=== PATIENT | female | born 1995 | race Asian ===

== ENCOUNTER → 2022-09-03 10:00 | Outpatient (CLI) | payer OTHER, SELFPAY ==
[2022-09-03 10:57] LABS: Influenza A - CEPHEID Flu A NEGATIVE (NEGATIVE); Influenza B - CEPHEID Flu B NEGATIVE (NEGATIVE); Respiratory Syncytial Virus Negative (Negative)
[2022-09-03 10:58] LABS: COVID-19 CEPHEID 4-PLEX PCR Negative (Negative)
== END ==
PROVIDERS: PCP Nurse Practitioner; Visit Provider Physician Assistant Medical
DX: R05.9 Cough, unspecified (principal)
CPT/HCPCS: 0241U

== ENCOUNTER → 2023-01-13 10:30 | Outpatient (CLI) | payer OTHER, SELFPAY ==
[2023-01-13 11:30] LABS: Add Manual Diff / Slide Review NO; Basophils Absolute Auto 100 /uL (0-100); Basophils Percent Auto 0.9 % (0-2); Eosinophils Absolute Auto 200 /uL (0-450); Eosinophils Percent Auto 2.9 % (2-4); Hematocrit 39.5 % (36-46); Hemoglobin 13.4 g/dL (12.0-16.0); Lymphocytes Absolute Auto 2700 /uL (1100-4500); Lymphocytes Percent Auto 33.6 % (25-40); Mean Corpuscular HGB Conc 33.8 % (30-36); Mean Corpuscular Hemoglobin 29.5 PG (26-34); Mean Corpuscular Volume 87.2 fL (80-100); Monocytes Absolute Auto 600 /uL (0-900); Monocytes Percent Auto 7.3 % (3-14); Neutrophils Absolute Auto 4500 /uL (1500-7000); Neutrophils Percent Auto 55.3 % (50-75); Platelet Count 272 X10^3/uL (150-400); Red Blood Cell Count 4.53 X10^6/uL (4.0-5.2); White Blood Cell Count 8.1 X10^3/uL (4.5-11.0)
[2023-01-13 12:01] LABS: Alanine Aminotransferase 143 IU/L (<35); Albumin 4.4 g/dL (3.5-5.0); Albumin Globulin Ratio 1.5 (1.0-2.8); Alkaline Phosphatase 123 U/L (38-126); Aspartate Aminotransferase 50 IU/L (14-36); BUN Creatinine Ratio 20.8 (6-22); Bilirubin Total 0.7 mg/dL (0.2-1.3); Blood Urea Nitrogen 15 mg/dL (7-17); C-Reactive Protein Quant 0.5 mg/dL (<1.0); Calcium 9.5 mg/dL (8.4-10.2); Carbon Dioxide 26 mmol/L (22-32); Chloride 104 mmol/L (98-107); Cholesterol 191 mg/dL (140-199); Estimated Glomerular Filt Rate > 60 mL/min (>60); Glucose 83 mg/dL (70-100); HDL Cholesterol 67 mg/dL (40-60); HEMOLYSIS < 15 (0-50); LDL Cholesterol Calculated 107 mg/dL (<100); Potassium 4.2 mmol/L (3.4-5.1); Sodium 139 mmol/L (137-145); Total Protein 7.4 g/dL (6.3-8.2); Triglycerides 84 mg/dL (35-150)
[2023-01-13 12:03] LABS: Rheumatoid Factor < 8.6 IU/mL (<12.0)
[2023-01-13 12:14] LABS: Erythrocyte Sedimentation Rate 6 MM/HR (0-20)
[2023-01-13 12:16] LABS: Free T3, Triiodothyronine Free 4.17 pg/mL (2.77-5.27); Free T4, Direct Thyroxine 1.04 ng/dL (0.78-2.19)
[2023-01-13 12:29] LABS: Thyroid Stimulating Hormone 1.78 uIU/mL (0.47-4.68)
[2023-01-13 17:00] LABS: Creatinine Urine Random 211.4 mg/dL
[2023-01-13 17:07] LABS: Microalbumi Creatinin Ratio Ur 5.2 ug/mg CR (<30); Microalbumin Urine Random 1.1 mg/dL (0-1.6)
[2023-01-13 18:38] LABS: HIV 1 & 2 Ab/Ag 4th Gen Combo NEGATIVE (NEGATIVE); Hep C Virus Ab w/Reflex Quant NEGATIVE s/c (NEGATIVE)
[2023-01-16 14:58] LABS: ANA Screen, IFA Negative (.)
== END ==
PROVIDERS: PCP Nurse Practitioner; Referring Provider Nurse Practitioner; Visit Provider Nurse Practitioner
DX: Z00.00 Encounter for general adult medical examination without abnormal findings (principal); Z11.59 Encounter for screening for other viral diseases; M25.50 Pain in unspecified joint; Z11.4 Encounter for screening for human immunodeficiency virus [HIV]
CPT/HCPCS: 36415; 80053; 80061; 82043; 82570; 84439; 84443; 84481; 85025; 85651; 86038; 86140; 86430; 86803; 87389

== ENCOUNTER → 2023-03-10 15:45 | Outpatient (CLI) | payer OTHER, SELFPAY ==
[2023-03-10 18:06] LABS: HCG Quantitative /Beta subunit 47127 mIU/mL
== END ==
PROVIDERS: PCP Nurse Practitioner; Referring Provider Nurse Practitioner; Visit Provider Nurse Practitioner
DX: N91.2 Amenorrhea, unspecified (principal)
CPT/HCPCS: 36415; 84702

== ENCOUNTER → 2023-04-11 15:33 | Outpatient (CLI) | payer OTHER, SELFPAY ==
[2023-04-11 19:57] LABS: Urine N gonorrhoeae NOT DETECTED
[2023-04-11 20:04] LABS: Urine Chlamydia NOT DETECTED
== END ==
PROVIDERS: Visit Provider Specialist
DX: Z34.81 Encounter for supervision of other normal pregnancy, first trimester (principal); Z3A.11 11 weeks gestation of pregnancy
CPT/HCPCS: 87491; 87591

== ENCOUNTER → 2023-04-11 15:56 | Outpatient (CLI) | payer OTHER, SELFPAY ==
[2023-04-11 16:16] LABS: Specimen Label NATERA TEST KIT
[2023-04-11 17:05] LABS: Add Manual Diff / Slide Review NO; Basophils Absolute Auto 100 /uL (0-100); Basophils Percent Auto 0.8 % (0-2); Eosinophils Absolute Auto 100 /uL (0-450); Hematocrit 40.1 % (36-46); Hemoglobin 13.7 g/dL (12.0-16.0); Lymphocytes Absolute Auto 2700 /uL (1100-4500); Lymphocytes Percent Auto 21.5 % (25-40); Mean Corpuscular HGB Conc 34.1 % (30-36); Mean Corpuscular Hemoglobin 29.4 PG (26-34); Mean Corpuscular Volume 86.2 fL (80-100); Monocytes Absolute Auto 500 /uL (0-900); Monocytes Percent Auto 4.3 % (3-14); Neutrophils Absolute Auto 9100 /uL (1500-7000); Neutrophils Percent Auto 72.4 % (50-75); Platelet Count 264 X10^3/uL (150-400); Red Blood Cell Count 4.65 X10^6/uL (4.0-5.2); Red Cell Distribution Width 12.1 % (11.6-14.8); White Blood Cell Count 12.5 X10^3/uL (4.5-11.0)
[2023-04-12 03:23] LABS: RPR Screen Non Reactive (Non Reactive)
[2023-04-12 08:39] LABS: Varicella IgG Antibody 412 index (Immune >165)
[2023-04-14 15:37] LABS: Hepatitis B Surface Antigen NEGATIVE s/c (NEGATIVE); Rubella Antibody IgG 69.7 IU/mL (>15)
[2023-04-14 15:55] LABS: HIV 1 & 2 Ab/Ag 4th Gen Combo NEGATIVE (NEGATIVE); Hep C Virus Ab w/Reflex Quant NEGATIVE s/c (NEGATIVE)
== END ==
PROVIDERS: Referring Provider Obstetrics & Gynecology; Visit Provider Obstetrics & Gynecology
DX: Z34.81 Encounter for supervision of other normal pregnancy, first trimester (principal); Z3A.11 11 weeks gestation of pregnancy
CPT/HCPCS: 36415; 80055; 86787; 86803; 86850; 86900; 86901; 87086; 87389; 87491; 87591

== ENCOUNTER → 2023-06-05 09:19 | Outpatient (CLI) | payer OTHER, SELFPAY ==
--- NOTE | 2023-06-05 14:20 | DI.US.S_ITS ---
PROCEDURE: US OB >= 14 WEEKS FETUS INDICATIONS: ANATOMY SCAN OUTSIDE/PRIOR DATING DATA: Last menstrual period (LMP): 01/23/2023. LMP-based estimated date of delivery (ELADIA): 10/30/2023. First dating scan (date and location): 04/11/2023. Estimated date of delivery (ELADIA) from first dating scan: 10/30/2023 The calculations are made using the working and ultrasound ELADIA of 10/30/2023. TECHNIQUE: Real-time scanning was performed of the fetus, with image documentation and biometric measurements. Endovaginal scanning: Not performed COMPARISON: None. FINDINGS: General: A single living intrauterine gestation is present. Presentation: Breech. Placenta: Placental position is anterior , low lying, without previa. Amniotic fluid index: 14.9 cm, normal range is 5-24 cm. Single deepest vertical pocket is 5.1 cm. heart rate: 153 beats per minute. Maternal cervical canal: 5 cm long. Normal lower limit is 2.5 cm. biometrics: Biparietal diameter: 4.3 cm, 19 weeks 0 days Head circumference: 16.1 cm, 18 weeks 6 days Abdominal circumference: 14.0 cm, 19 weeks 0 days Femur length: 2.9 cm, 18 weeks 5 days Clinically estimated gestational age: 19 weeks 0 days Composite gestational age from present scan: 18 weeks 6 days Estimated weight and percentile: 264 g, 40th percentile Anatomic survey: Neuro: Ventricles are non-dilated at less than 10 mm. Cisterna magna is normal at 3-11 mm. Cerebellum is normal in size and morphology. Nuchal skin fold: Normal at less than 6 mm between 14-21 weeks gestational age. Face: Nose and lips, facial profile are normal. Spine: No evidence for spina bifida. Heart: 4-chambered heart is present, with normal ventricular outflow tracts. Diaphragm: Diaphragm is intact. Stomach: Left-sided stomach is present. Kidneys: No hydronephrosis. Normal is less than 5 mm in 2nd trimester, less than 7 mm in 3rd trimester. Cord: 3-vessel cord has orthotopic insertion. Bladder: Normal in size. Extremities: All 4 extremities identified. IMPRESSION: 1. Living 2nd trimester intrauterine . No sonographic evidence of complications. Current ultrasound age is 1 day less than clinical age. 2. Normal anatomy scan. 3. Low-lying placenta without previa. Consider follow-up ultrasound to document resolution of low lying placenta. We strive to produce accurate, complete, and clear reports of imaging services. To assist us in improving patient care, this report was composed using standard report templates and voice recognition software. Therefore, it may contain abnormal punctuation, insertions and/or omissions. Occasional wrong-word or sound-alike substitutions may occur. Though we review the report and make efforts to correct it, we do recommend that the report be read carefully in proper context to recognize any text inaccuracies. Dictated by: Gilmer Douglas M.D. on 06/05/2023 at 17:26 Approved by: Gilmer Douglas M.D. on 06/05/2023 at 17:36
[2023-06-07 22:44] LABS: AFP Value 38.2 ng/mL (.); Insulin Dep Diabetes No (.); OSBR Risk 1IN 10000 (.); Test Results *Screen Negative* (.)
[2023-06-10 07:57] LABS: Results Report (.)
== END ==
PROVIDERS: Referring Provider Specialist; Visit Provider Specialist
DX: O44.42 Low lying placenta NOS or without hemorrhage, second trimester (principal); Z3A.18 18 weeks gestation of pregnancy
CPT/HCPCS: 36415; 76811; 82105

== ENCOUNTER → 2023-08-22 10:22 | Outpatient (CLI) | payer OTHER, SELFPAY ==
--- NOTE | 2023-08-22 11:32 | DI.US.S_ITS ---
PROCEDURE: US OB FOLLOW UP INDICATIONS: FOLLOW UP LOW LYING PLACENTA OUTSIDE/PRIOR DATING DATA: Last menstrual period (LMP): 01/23/2023. LMP-based estimated date of delivery (ELADIA): 10/30/2023. First dating scan (date and location): 04/11/2023. Estimated date of delivery (ELADIA) from first dating scan: 10/30/2023 TECHNIQUE: Real-time scanning was performed of the fetus, with image documentation. Endovaginal scanning: No COMPARISON: None. FINDINGS: A single living intrauterine gestation is present. Presentation: Vertex Placenta: Placental position is anterior, without previa. Amniotic fluid index: 12.2 cm, normal range is 5-24 cm. Single deepest vertical pocket is 4.9 cm. heart rate: 144 beats per minute. Maternal cervical canal: 5.4 cm long. Normal lower limit is 2.5 cm. Clinically estimated gestational age: 30 weeks 1 day Limited survey of anatomy includes normal stomach/abdomen, bilateral renal regions, and urinary bladder/pelvis. . IMPRESSION: 1. Single living intrauterine gestation. 2. No evidence of low lying placenta. Dictated by: Lashawn Burciaga M.D. on 08/22/2023 at 16:18 Approved by: Lashawn Burciaga M.D. on 08/22/2023 at 16:20
[2023-08-22 12:10] LABS: Hematocrit 39.2 % (36-46); Hemoglobin 13.5 g/dL (12.0-16.0)
[2023-08-22 12:33] LABS: GTT (PREG) 1 Hour PP 50gm Dose 130 mg/dL (76-139)
== END ==
PROVIDERS: Referring Provider Student in an Organized Health Care Education/Training Program; Visit Provider Student in an Organized Health Care Education/Training Program
DX: O44.43 Low lying placenta NOS or without hemorrhage, third trimester (principal); Z3A.30 30 weeks gestation of pregnancy
CPT/HCPCS: 36415; 76816; 82950; 85014; 85018

== ENCOUNTER → 2023-10-09 11:20 | Outpatient (CLI) | payer OTHER, SELFPAY ==
[2023-10-10 09:30] LABS: Strep Grp B PCR POS for Grp B Strep
== END ==
PROVIDERS: Visit Provider Student in an Organized Health Care Education/Training Program
DX: Z34.93 Encounter for supervision of normal pregnancy, unspecified, third trimester (principal); Z3A.37 37 weeks gestation of pregnancy
CPT/HCPCS: 87653

== ENCOUNTER 2023-10-28 07:13 | Inpatient (IN) | payer OTHER, SELFPAY ==
--- NOTE | 2023-10-28 08:20 | PM.OBHP.1 ---
OB HPI Date/Time Date of admission: 10/28/23 Date Patient Seen: 10/28/23 Time Patient Seen: 08:20 History of Present Condition Chief complaint: IUP, 39+5 wks, SROM, GBS positive status : 3 Para: 1 Estimated Date of Delivery: 10/30/23 Estimated Gestational Age (weeks): 39+5 Narrative: Lyubov Adams is a 28 year old , admitted now at 39+ 5 weeks gestational age with rupture membranes occurring 21 hours prior to presentation. Patient is having only irregular contractions. She has had an uneventful course with solid early dating and appropriate milestones throughout. GBS is positive. History of Present care: good care Dating criteria: LMP confirmed by 1st trimester US Ultrasounds: normal 1st trimester US and normal mid trimester US Obstetrical complications: other (GBS positive status) Preadmission Labs Blood type: B (+) positive -: Antibody screen: negative, GBS status: positive, HBsAG: negative, HIV: negative and RPR/VDLR: negative -: Chlamydia screen: not detected and Gonorrhea screen: not detected -: Rubella: immune and Varicella: immune HCT: 39.2 HCAB: negative PAP: Normal Quad screen: Normal (AFP testing negative) Cell-free DNA: Low risk male infant 1 hr GTT: 130 Prior (ies) History: x 1 Evaluation Evaluation Baseline heart rate: 150 Variability: Moderate (11-25) monitor accelerations: Present Monitor Decelerations: Absent Contraction Frequency (minutes): 6 Uterine Contraction Intensity: Mild Category of Tracing: Reactive Status: Category l Dilation (cm): 3 Effacement (%): 80 Dilation: 3-4 cm Effacement: >/=80% station: -1 Position of cervix: mid Consistency: medium Enrique score: 9 Non-invasive Membranes Rupture Test: positive PFS Medical History (Updated 10/15/23 @ 10:04 by Natalie Doss DO) Asthma Migraines Headache Chlamydia (~2014) Surgical History Anesthesia History of removal of cyst (~2011) [place] teeth removed (~2005) Family History (Updated 04/09/23 @ 14:36 by Juliana Cifuentes RN) Father Diabetes mellitus Mother Hypertension Grandfather Stroke Grandfather Diabetes mellitus Hypertension Hyperlipidemia Stroke Grandmother Diabetes mellitus Hypertension Hyperlipidemia Family/Other Diabetes mellitus Social History marital status: number of children: 1 household members: spouse lives independently: Yes caregiver/support person: Yes housing: house pets and animals: No education level: college (bachelor's degree) 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) current occupational exposures/hazards: No special antione needs: No travel history: recent () seatbelt use: always helmet use: Yes water heater temp set < 120 deg: Yes working smoke detector in home: Yes fire extinguisher in home: No carbon monox detector in home: Yes firearms in home: Yes firearms unloaded and locked: Yes do you feel safe at home: Yes Smoking Status: Never smoker second hand exposure: No alcohol intake: former (occasionally when not ) substance use type: does not use during the past year weight has: increased > 10 lbs well-balanced diet: rarely or never daily servings fruits/ve-1 caffeine: No Type(s) of exercise: weight lifting Meds Home Medications and Allergies Home Medications Medication Instructions Recorded Confirmed Type prenat.vits,kasia,smh-qhhv-ocyqq 1 tab PO DAILY 04/09/23 10/28/23 History Allergies Allergy/AdvReac Type Severity Reaction Status Date / Time No Known Drug Allergies Allergy Verified 10/15/23 09:50 Review of Systems Review of Systems Narrative: Problem-specific ROS positives included in HPI OB Exam Vital signs Blood Pressure: 132/78 Pulse Rate: 85 Temperature: 97.2 F HENMT Head: normal to inspection, normocephalic and atraumatic Eyes General: appearance normal, both eyes and all related structures Resp Effort & Inspection: normal respiratory effort and able to speak in complete sentences Auscultation: clear to auscultation bilaterally Cardio Rate: regular rate Rhythm: regular rhythm Heart Sounds: S1 normal, S2 normal and no murmurs Extremities Lower extremity: Yes normal to inspection GI Inspection: normal to inspection Palpation: Yes soft and Yes no hepatosplenomegaly Uterus Location (Fundal Height): 37 Presentation: vertex Estimated Weight (lbs): 7 Objective Labs 10/28/23 07:55 Assessment and Plan Assessment and Plan Assessment and Plan narrative: ASSESSMENT 1. Intrauterine , 39+5 wks EGA 2. SROM x 21 hrs. 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 GBS positive status PLAN 1. Admit for labor and delivery 2. See admission orders
[2023-10-28 08:44] LABS: Add Manual Diff / Slide Review NO; Basophils Absolute Auto 0 /uL (0-100); Basophils Percent Auto 0.4 % (0-2); Eosinophils Absolute Auto 100 /uL (0-450); Hematocrit 39.4 % (36-46); Hemoglobin 13.4 g/dL (12.0-16.0); Lymphocytes Absolute Auto 2500 /uL (1100-4500); Lymphocytes Percent Auto 21.6 % (25-40); Mean Corpuscular HGB Conc 33.9 % (30-36); Mean Corpuscular Volume 85.4 fL (80-100); Monocytes Absolute Auto 600 /uL (0-900); Monocytes Percent Auto 5.1 % (3-14); Neutrophils Absolute Auto 8300 /uL (1500-7000); Neutrophils Percent Auto 71.9 % (50-75); Platelet Count 213 X10^3/uL (150-400); Red Blood Cell Count 4.61 X10^6/uL (4.0-5.2); White Blood Cell Count 11.6 X10^3/uL (4.5-11.0)
[2023-10-28] MEDS: AMPICILLIN 2,000 MG in SODIUM CHLORIDE 0.9% 100 ML 200 MG IV (08:49)
[2023-10-28] MEDS: LACTATED RINGERS 1,000 ML 100 ML IV (08:49)
[2023-10-28 09:27] VITALS: BP 132/78
[2023-10-28] MEDS: OXYTOCIN PREMIX 30 UNIT/500 ML PLAST..BAG IV (10:01)
[2023-10-28] MEDS: AMPICILLIN 1,000 MG in SODIUM CHLORIDE 0.9% 100 ML 200 MG IV (12:33)
--- NOTE | 2023-10-28 13:21 | PM.OBPRVD ---
Events: Prolonged Rupture Membrane and Other (GBS positive status) Labor & Delivery Delivery date: 10/28/23 Intrapartal Events: None Cervical ripening method: none Induction method: per pitocin protocol Delivery monitor: external FHT and external uterine Route of delivery: Episiotomy description: None L&D Laceration Description: Perineal - 2nd Degree Delivery repair: chromic Estimated blood loss (mL): 200 Anesthesia Type: Local and Other (Nitrous oxide) Complications: None Narrative: Following a 2nd stage lasting less than 10 minutes, the patient delivered spontaneously over an intact perineum a viable and vigorous male . A tight nuchal cord was reduced after delivery of the and skin to skin contact initiated immediately. Delayed cord clamping performed and once the umbilical cord was doubly clamped and cut, cord blood sample was obtained for routine studies. The placenta was then delivered with gentle cord traction and suprapubic countertraction. Intravenous Pitocin was administered immediately after delivery of the placenta and the post delivery bleeding was easily brought under control. Placenta was then inspected and found to be intact with a centrally inserted three-vessel cord. Inspection of the perineum showed that there was a superficial second-degree perineal laceration in the midline which was closed with 2-0 chromic catgut suture under nitrous with local anesthetic. Sponge and needle counts were correct at the completion of the case and both mother and tolerated the delivery process well. Baby 1: Infant gender: Male Presentation: vertex Position: Left Occiput Anterior Placenta delivery description: Spontaneous Cord Vessel Description: 3 Vessels score (1 min): 9 score (5 min): 9 weight: 8 lb 0.291 oz
[2023-10-28] MEDS: DERMOPLAST SPRAY 20% 60 ML 1 SPRAY TOP (17:21)
[2023-10-28 17:31] VITALS: BP 132/78; PULSE 85; TEMP 36.2
--- NOTE | 2023-10-28 17:36 | P.DS_ITS ---
Discharge Providers Provider Date of admission: 10/28/23 07:13 Discharge Date: 10/30/23 Primary care physician: Lora ROMERO Provider Consults: 10/28/23 08:20 Consult to Anesthesiology Urgent Comment: Consulting Provider: Misael Wilkerson Reason for consultation: Epidural Has provider been notified: No 10/29/23 13:19 Consult to Professor Of Floriculture Routine Comment: Discharge provider: Misael Wilkerson MD Summary Hospital Course Date Patient Seen: 10/29/23 Time Patient Seen: 07:30 Diagnoses: Intrauterine gestation, 39+ 5 weeks gestational age, delivered by spontaneous vaginal Prolonged rupture of membranes Group B strep positive status Hospital Course: The patient was admitted on the morning of 10/28/2023 with rupture membranes apparently occurring the prior morning about 21 hours prior to admission. Intravenous ampicillin was initiated immediately upon her admission and Pitocin induction/augmentation initiated. The patient delivered spontaneously by vaginal mid day on 10/08/2023 a viable male with Apgars of 9/9 and a weight of 3637 g (8 lb 0.3 oz). Because the mother had only received a single dose of IV ampicillin prior to delivery, baby remained in the hospital for an additional day. Both mother and baby remained afebrile following delivery both are doing well. Mother has experienced prompt return of bowel and bladder function, she is ambulating independently, tolerating regular diet, and her pain is well controlled with oral pain medications. She will be discharged at this time to home in an afebrile normotensive condition after counseling regarding precautionary symptoms, limitations of activity, medications, and plans for follow-up will be in 6 weeks or as needed. Medications at discharge include resumption of vitamins along with ibuprofen 600 mg p.o. q.6 hours as needed pain. Peripartum Data Delivery Method: Natural Vaginal Laceration Description: Perineal - 2nd Degree Procedures: Spontaneous vaginal with repair of second-degree perineal laceration complications: none 1: Gender: Male Disposition of : home Status at Discharge Cognitive/behavioral status at discharge: oriented Functional status at discharge: independent ambulation Overall status at discharge: patient is progressing back to baseline Time Spent with Patient Time attestation: Total time spent providing and/or coordinating discharge services: Time spent: Less than 30 minutes Objective Labs 10/29/23 06:15 Labs: Laboratory Results - last 24 hr 10/28/23 07:55 WBC 11.6 H RBC 4.61 Hgb 13.4 Hct 39.4 MCV 85.4 MCH 29.0 MCHC 33.9 RDW 14.0 Plt Count 213 Neut % (Auto) 71.9 Lymph % (Auto) 21.6 L [place] % (Auto) 5.1 Eos % (Auto) 1.0 L Baso % (Auto) 0.4 Neut # (Auto) 8300 H Lymph # (Auto) 2500 [place] # (Auto) 600 Eos # (Auto) 100 Baso # (Auto) 0 Blood Type B Positive Antibody Screen Negative Exam Vital Signs (past 8 hours): - 10/28/23 17:31 Temperature 97.2 F L Pulse Rate 85 Blood Pressure 132/78 Const General: cooperative and comfortable Nutritional Appearance: average body habitus HENMT Head: normal to inspection, normocephalic and atraumatic Face and sinus: normal facial exam Eyes General: appearance normal, both eyes and all related structures Neck Neck: normal visual inspection Resp Effort & Inspection: normal respiratory effort and able to speak in complete sentences GI Inspection: normal to inspection Palpation: soft and no hepatosplenomegaly Uterus Location (Fundal Height): 17 Discharge Plan Discharge Plan Patient Disposition: Home Provider Discharge Comment: Please review the written instructions you received when you were discharged from the hospital. Your follow-up appointment will be scheduled for 6 weeks after delivery and we look forward to seeing you then. If however in the meanwhile you have any issues, concerns, or questions, please contact the office at [phone] or via patient portal. Discharge orders & Medications Prescriptions: New ibuprofen 600 mg Tablet 600 mg PO Q6HR PRN (Reason: Pain, Mild (1-3)) Qty: 30 2RF Continued prenat.vits,kasia,gwu-wvol-dgjwa Tablet 1 tab PO DAILY Follow up/Referrals: Provider,Lora ROMERO [Primary Care Provider] - Natalie Doss DO [Physician] - (Appointment on Thrus, December, check in time 10:00 am and appointment 10:15 am.) Misael Wilkerson MD [Physician] - Discharge Health Status Multidrug resistant organism: No MDRO Diet/Activity/Treatments Diet: Diet as Tolerated Activity: As tolerated Other treatments: Lihm-boq-[id number] Tylenol may be for additional pain relief. Qfoy-jom-jjgdeiv stool softeners and/or MiraLax as needed constipation. Skin/Wound/Dressing Care Report to your healthcare provider any signs of infection, such as:: chills, fever, increased pain, unusual drainage and unusual redness Dressing: N/A Visit Report/Discharge Packet Instructions: DI for Labor and Delivery, Vaginal , DI for and Nipple Soreness Discharge Data Primary Care Provider: Lora Wallace
[2023-10-28] MEDS: ACETAMINOPHEN 325 MG TABLET 650 MG PO (20:48)
[2023-10-28] MEDS: DOCUSATE 100 MG CAPSULE PO (20:48)
[2023-10-29] MEDS: ACETAMINOPHEN 325 MG TABLET 650 MG PO ×2 (05:49→13:21)
[2023-10-29 06:26] LABS: Add Manual Diff / Slide Review NO; Basophils Absolute Auto 100 /uL (0-100); Basophils Percent Auto 0.6 % (0-2); Eosinophils Absolute Auto 100 /uL (0-450); Eosinophils Percent Auto 0.8 % (2-4); Hematocrit 37.6 % (36-46); Lymphocytes Absolute Auto 3400 /uL (1100-4500); Lymphocytes Percent Auto 19.6 % (25-40); Mean Corpuscular HGB Conc 34.5 % (30-36); Mean Corpuscular Hemoglobin 29.2 PG (26-34); Mean Corpuscular Volume 84.8 fL (80-100); Monocytes Absolute Auto 900 /uL (0-900); Neutrophils Absolute Auto 12900 /uL (1500-7000); Platelet Count 199 X10^3/uL (150-400); Red Blood Cell Count 4.44 X10^6/uL (4.0-5.2); Red Cell Distribution Width 14.3 % (11.6-14.8); White Blood Cell Count 17.4 X10^3/uL (4.5-11.0)
[2023-10-29] MEDS: IBUPROFEN 600 MG TABLET PO ×2 (08:45→16:29)
[2023-10-29] MEDS: DOCUSATE 100 MG CAPSULE PO ×2 (08:46→21:40)
--- NOTE | 2023-10-29 14:41 | PM.OBPN.1 ---
Subjective - OB Subjective Patient comments: no complaints [place] baby status: doing well [place] feeding status: exclusively breast feeding Date Patient Seen: 10/29/23 Time Patient Seen: 08:45 Interval history: Doing well overnight following yesterday afternoon. Infant or remain in hospital until 10/30/2023 because a 2nd dose of IV antibiotics was unable to be administered prior to infant delivery. Exam Const General: cooperative and comfortable Nutritional Appearance: average body habitus Orientation: alert and oriented x3 HENMT Head: normal to inspection, normocephalic and atraumatic Ears: hearing grossly normal bilaterally Face and sinus: face symmetric Eyes General: appearance normal, both eyes and all related structures Conjunctivae: conjunctivae normal Sclera: sclerae normal EOM: EOM intact bilaterally Neck Neck: normal visual inspection Resp Effort & Inspection: normal respiratory effort and able to speak in complete sentences GI Inspection: normal to inspection Palpation: soft and no hepatosplenomegaly External Female Exam: other (Perineum intact, minimal bleeding) Psych Appearance: grossly normal Mental Status: mental status grossly normal Speech and Movement: speech and movement normal Mood: congruent mood Affect: normal affect Attitude: cooperative Thought Process: normal Thought Content: normal Judgment: judgment good Objective Labs 10/29/23 06:15 Labs: Laboratory Results - last 24 hr 10/29/23 06:15 WBC 17.4 H RBC 4.44 Hgb 13.0 Hct 37.6 MCV 84.8 MCH 29.2 MCHC 34.5 RDW 14.3 Plt Count 199 Neut % (Auto) 74.0 Lymph % (Auto) 19.6 L [place] % (Auto) 5.0 Eos % (Auto) 0.8 L Baso % (Auto) 0.6 Neut # (Auto) 63316 H Lymph # (Auto) 3400 [place] # (Auto) 900 Eos # (Auto) 100 Baso # (Auto) 100 Assessment & Plan Assessment and Plan (1) Obstetric vaginal laceration, delivered, current hospitalization: Status: Acute (2) Group B Streptococcus carrier state affecting : Status: Acute Plan day: 1 plan OB: routine care Comments: Continue routine care with plans for discharge in a.m. Time Spent With Patient Time: Total time spent is greater than 50% in coordination of care (as documented) at patient's floor/unit and/or counseling patient: Time with patient: 15-24 minutes
[2023-10-30] MEDS: ACETAMINOPHEN 325 MG TABLET 650 MG PO ×2 (04:25→10:13)
[2023-10-30] MEDS: IBUPROFEN 600 MG TABLET PO ×2 (04:25→10:14)
[2023-10-30 08:48] VITALS: BP 142/82; PULSE 99; RESP 17; TEMP 36.6
[2023-10-30] MEDS: DOCUSATE 100 MG CAPSULE PO (10:14)
== END 2023-10-30 13:44 | disposition home or self-care (01) | DRG 807 ==
PROVIDERS: Admitting Provider Obstetrics & Gynecology; Referring Provider Obstetrics & Gynecology; Visit Provider Obstetrics & Gynecology
DX: O42.02 Full-term premature rupture of membranes, onset of labor within 24 hours of rupture (principal); Z37.0 Single live birth; O70.1 Second degree perineal laceration during delivery; O99.824 Streptococcus B carrier state complicating childbirth; Z3A.39 39 weeks gestation of pregnancy
CPT/HCPCS: 36415; 59050; 59400; 59409; 84112; 85025; 86850; 86900; 86901; G0379; J0290; J2590

== ENCOUNTER → 2024-02-09 15:06 | Outpatient (CLI) | payer OTHER, SELFPAY ==
[2024-02-09 16:47] LABS: Alanine Aminotransferase 98 IU/L (<35); Albumin 4.9 g/dL (3.5-5.0); Albumin Globulin Ratio 1.7 (1.0-2.8); Alkaline Phosphatase 144 U/L (38-126); Aspartate Aminotransferase 50 IU/L (14-36); BUN Creatinine Ratio 20.7 (6-22); Bilirubin Total 0.6 mg/dL (0.2-1.3); Blood Urea Nitrogen 17 mg/dL (7-17); Calcium 9.5 mg/dL (8.4-10.2); Carbon Dioxide 29 mmol/L (22-32); Chloride 106 mmol/L (98-107); Estimated Glomerular Filt Rate > 60 mL/min (>60); Globulin 2.9 g/dL (1.7-4.1); Glucose 89 mg/dL (70-100); HEMOLYSIS < 15 (0-50); Potassium 4.1 mmol/L (3.4-5.1); Sodium 140 mmol/L (137-145); Total Protein 7.8 g/dL (6.3-8.2)
[2024-02-09 17:17] LABS: TSH w/ Reflex to FT4 1.25 uIU/mL (0.47-4.68)
== END ==
LOC: LAB 15:07
PROVIDERS: Referring Provider Family Medicine; Visit Provider Family Medicine
DX: M25.50 Pain in unspecified joint (principal)
CPT/HCPCS: 36415; 80053; 84443

== ENCOUNTER → 2024-04-19 11:19 | Outpatient (CLI) | payer OTHER, SELFPAY ==
[2024-04-19 14:26] LABS: Alanine Aminotransferase 81 IU/L (<35); Albumin 4.6 g/dL (3.5-5.0); Albumin Globulin Ratio 1.6 (1.0-2.8); Alkaline Phosphatase 159 U/L (38-126); Aspartate Aminotransferase 48 IU/L (14-36); Bilirubin Total 0.7 mg/dL (0.2-1.3); Blood Urea Nitrogen 15 mg/dL (7-17); Calcium 9.4 mg/dL (8.4-10.2); Carbon Dioxide 24 mmol/L (22-32); Chloride 107 mmol/L (98-107); Estimated Glomerular Filt Rate > 60 mL/min (>60); Gamma Glutamyl Transpeptidase 128 U/L (12-43); Globulin 2.9 g/dL (1.7-4.1); Glucose 83 mg/dL (70-100); HEMOLYSIS < 15 (0-50); Potassium 4.5 mmol/L (3.4-5.1); Sodium 140 mmol/L (137-145); Total Protein 7.5 g/dL (6.3-8.2)
[2024-04-20 05:12] LABS: HBsAg Screen Negative (Negative); Hepatitis A Antibody IgM Negative (Negative); Hepatitis B Core Antibody IgM Negative (Negative); Hepatitis C Antibody Non Reactive (Non Reactive)
== END ==
LOC: LAB 11:20
PROVIDERS: Referring Provider Family Medicine; Visit Provider Family Medicine
DX: R79.89 Other specified abnormal findings of blood chemistry (principal)
CPT/HCPCS: 36415; 80053; 80074; 82977

== ENCOUNTER → 2024-06-16 06:51 | Outpatient (CLI) | payer OTHER, SELFPAY ==
--- NOTE | 2024-06-16 06:52 | DI.US.S_ITS ---
PROCEDURE: US ABDOMEN LIMITED INDICATIONS: ELEVATED LFTS TECHNIQUE: Real-time scanning was performed of the abdominal and retroperitoneal organs, with image documentation. COMPARISON: None. FINDINGS: Liver: Liver is normal in size and mild increased in steatosis. Gallbladder: Small mobile areas of increased echogenicity are present. No wall thickening. No pericholecystic edema. Negative sonographic Nguyen's sign. Biliary ducts: Intrahepatic bile ducts are non-dilated. Extrahepatic bile duct caliber measures 4.0 mm. Normal is 6-7 mm or less in diameter, or 10 mm or less post-cholecystectomy. Pancreas: Visualized portions of the pancreas are sonographically normal. Miscellaneous: No free abdominal fluid. IMPRESSION: Cholelithiasis without imaging evidence of cholecystitis. Mild hepatic steatosis. Dictated by: Adrienne Soria M.D. on 06/16/2024 at 12:37 Approved by: Adrienne Soria M.D. on 06/16/2024 at 12:38
== END ==
LOC: US 06:51
PROVIDERS: PCP Family Medicine; Referring Provider Family Medicine; Visit Provider Family Medicine
DX: K80.20 Calculus of gallbladder without cholecystitis without obstruction (principal); K76.0 Fatty (change of) liver, not elsewhere classified; R79.89 Other specified abnormal findings of blood chemistry
CPT/HCPCS: 76705

== ENCOUNTER → 2025-06-16 16:14 | Outpatient (CLI) | payer OTHER, SELFPAY ==
[2025-06-16 16:53] LABS: Hematocrit 39.6 % (36-46); Hemoglobin 13.4 g/dL (12.0-16.0); Mean Corpuscular HGB Conc 33.8 % (30-36); Mean Corpuscular Hemoglobin 29.7 PG (26-34); Mean Corpuscular Volume 87.7 fL (80-100); Platelet Count 255 X10^3/uL (150-400)
[2025-06-16 17:20] LABS: HEMOLYSIS < 15 (0-50); Iron 81 ug/dL (37-170)
[2025-06-16 17:28] LABS: Transferrin 246 mg/dL (206-381)
[2025-06-16 17:38] LABS: Percent Iron Saturation 27 % (15-50); Total Iron Binding Capacity 301 ug/dL (265-497)
[2025-06-16 18:18] LABS: Alanine Aminotransferase 31 IU/L (<35); Albumin 4.6 g/dL (3.5-5.0); Albumin Globulin Ratio 1.8 (1.0-2.8); Alkaline Phosphatase 82 U/L (38-126); Blood Urea Nitrogen 16 mg/dL (7-17); Calcium 9.2 mg/dL (8.4-10.2); Carbon Dioxide 23 mmol/L (22-32); Chloride 107 mmol/L (98-107); Estimated Glomerular Filt Rate > 60 mL/min (>60); Gamma Glutamyl Transpeptidase 48 U/L (12-43); Globulin 2.5 g/dL (1.7-4.1); Glucose 84 mg/dL (70-99); HEMOLYSIS < 15 (0-50); Potassium 4.1 mmol/L (3.4-5.1); Sodium 141 mmol/L (137-145); Total Protein 7.1 g/dL (6.3-8.2); Uric Acid 4.1 mg/dL (2.5-6.2)
[2025-06-16 18:50] LABS: Ferritin 37 ng/mL (6-137)
[2025-06-17 23:36] LABS: Hepatitis A Antibody IgM Negative (Negative); Hepatitis B Core Antibody IgM Negative (Negative); Hepatitis C Antibody Non Reactive (Non Reactive)
[2025-06-21 15:36] LABS: ANA Screen, IFA Negative (.)
== END ==
PROVIDERS: PCP Family Medicine; Referring Provider Family Medicine; Visit Provider Family Medicine
DX: R79.89 Other specified abnormal findings of blood chemistry (principal); M25.50 Pain in unspecified joint
CPT/HCPCS: 36415; 80053; 80074; 82728; 82977; 83540; 83550; 84550; 85027; 85651; 86038; 86140

== ENCOUNTER 2025-07-20 11:45 | Emergency (ER) | payer OTHER, SELFPAY ==
[2025-07-20] VITALS (7 sets, daily range): BP systolic 104–116; BP diastolic 57–87; PULSE 45–56; RESP 16–34; TEMP 36.4–37.2; O2SAT 98–99; BMI 30.2
--- NOTE | 2025-07-20 11:54 | EKG_ITS ---
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
--- NOTE | 2025-07-20 11:56 | DI.RAD.S_ITS ---
PROCEDURE: XR CHEST 1V INDICATIONS: chest pain TECHNIQUE: One view of the chest was acquired. COMPARISON: None. FINDINGS: Clothing artifact is noted. Surgical changes and devices: None. Lungs and pleura: Lungs are clear. No pleural effusions or pneumothorax. Mediastinum: Mediastinal contours appear normal. Heart size is normal. Bones and chest wall: No suspicious bony lesions. Overlying soft tissues appear unremarkable. IMPRESSION: Unremarkable single-view chest. Dictated by: David Boykin M.D. on 07/20/2025 at 11:32 Approved by: David Boykin M.D. on 07/20/2025 at 11:33
[2025-07-20] MEDS: ASPIRIN 81 MG CHEW TAB 324 MG PO (12:22)
[2025-07-20 12:32] LABS: Add Manual Diff / Slide Review NO; Hematocrit 38.9 % (36-46); Hemoglobin 13.1 g/dL (12.0-16.0); Lymphocytes Absolute Auto 2200 /uL (1100-4500); Mean Corpuscular HGB Conc 33.7 % (30-36); Mean Corpuscular Hemoglobin 29.8 PG (26-34); Mean Corpuscular Volume 88.4 fL (80-100); Platelet Count 270 X10^3/uL (150-400)
[2025-07-20 12:45] LABS: Alanine Aminotransferase 42 IU/L (<35); Albumin 4.6 g/dL (3.5-5.0); Albumin Globulin Ratio 1.7 (1.0-2.8); Alkaline Phosphatase 81 U/L (38-126); Blood Urea Nitrogen 11 mg/dL (7-17); Calcium 9.2 mg/dL (8.4-10.2); Carbon Dioxide 24 mmol/L (22-32); Chloride 107 mmol/L (98-107); Estimated Glomerular Filt Rate > 60 mL/min (>60); Globulin 2.7 g/dL (1.7-4.1); Glucose 97 mg/dL (70-99); HEMOLYSIS < 15 (0-50); Lipase 182 U/L (23-300); Magnesium 2.0 mg/dL (1.6-2.3); Potassium 3.9 mmol/L (3.4-5.1); Sodium 139 mmol/L (137-145); Total Protein 7.3 g/dL (6.3-8.2)
--- NOTE | 2025-07-20 12:47 | ED_ITS ---
HPI - Chest Pain General Chief Complaint: Chest Pain Stated Complaint: chest pain since friday- no relief sent from [facility] Time Seen by Provider: 07/20/25 12:05 Source: patient Mode of arrival: Ambulatory Limitations: no limitations History of Present Illness HPI narrative: Patient has a healthy 30-year-old female presenting to day with chest pain. He says been there for about a week it sorry while she was cooking. She does not remember any injury. No fever chills or cough. It hurts pinpoint on the anterior side of her chest, reproducible with palpation. No significant fever or shortness of breath. She has not taken any Tylenol or ibuprofen for it Related Data Home Medications ?Medication ?Instructions ?Recorded ?Confirmed prenat.vits,kasia,ura-[id number] 1 tab PO DAILY 04/09/23 06/16/25 Previous Rx's ?Medication ?Instructions ?Recorded sumatriptan succinate 50 mg tablet See Rx Instructions PO .COMPLEX #9 02/06/25 tabs Allergies Allergy/AdvReac Type Severity Reaction Status Date / Time No Known Drug Allergies Allergy Verified 06/16/25 15:34 Patient History Medical History Elevated LFTs Joint pain Obstetric vaginal laceration, delivered, current hospitalization Asthma Migraines Headache Chlamydia (~2014) Surgical History Anesthesia History of removal of cyst (~2011) [place] teeth removed (~2005) Family History Father Diabetes mellitus Mother Hypertension Grandfather Stroke Grandfather Diabetes mellitus Hypertension Hyperlipidemia Stroke Grandmother Diabetes mellitus Hypertension Hyperlipidemia Family/Other Diabetes mellitus Social History marital status: number of children: 1 household members: spouse lives independently: Yes caregiver/support person: Yes housing: house pets and animals: No education level: college (bachelor's degree) 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) current occupational exposures/hazards: No special antione needs: No travel history: recent () seatbelt use: always helmet use: Yes water heater temp set < 120 deg: Yes working smoke detector in home: Yes fire extinguisher in home: No carbon monox detector in home: Yes firearms in home: Yes firearms unloaded and locked: Yes do you feel safe at home: Yes Smoking Status: Never smoker second hand exposure: No alcohol intake: former (occasionally when not ) substance use type: does not use during the past year weight has: increased > 10 lbs well-balanced diet: rarely or never daily servings fruits/ve-1 caffeine: No Type(s) of exercise: weight lifting Smoking Status: Never smoker Exam Initial Vital Signs Initial Vital Signs: Vital Signs Temperature 98.9 F 07/20/25 11:49 Pulse Rate 55 L 07/20/25 11:49 Respiratory Rate 18 07/20/25 11:49 Blood Pressure 116/61 07/20/25 11:49 Pulse Oximetry 99 07/20/25 11:49 Oxygen Delivery Method Room Air 07/20/25 11:49 GENERAL: Alert very well-appearing 30-year-old and in no acute distress. HEENT: Head atraumatic,EOMI, pupils reactive, face symmetric, moist mucous membranes CARDIOVASCULAR: Regular rate and rhythm without murmurs, rubs or gallops. Pain anterior ribs reproducible RESPIRATORY: Breath sounds equal bilaterally, no wheezes rales or rhonchi. ABDOMEN: Soft, nontender. Normoactive bowel sounds all 4 quadrants. No guarding or rebound. EXTREMITIES: Normal range of motion, no clubbing or edema. Neurovascularly intact NEUROLOGICAL: Alert and oriented x4.Normal gait and speech. Cranial nerves II through XII grossly intact. SKIN: Warm, dry, no laceration, no petechiae, no rashes or lesions. Scores HEART Score Heart Score history: Slightly Suspicious Heart Score EKG: Normal Heart Score Age: < 45 years old Heart Score risk factors: No known risk factors Heart Score troponin: < or = to normal limit Heart Score Total: 0 Course Orders Ordered: ED Orders 07/20/25 11:54 EKG-12 Lead Stat 07/20/25 11:56 Chest [XR chest 1V] Stat 07/20/25 12:22 Complete Blood Count AUTO DIFF Stat Comprehensive Metabolic Panel Stat D Dimer Stat Lipase Stat Magnesium Stat NT-proBNP (BNP-Adult 18+) Stat PTT Partial Thromboplastin Mike Stat Prothrombin Time INR Stat Troponin I Stat Discontinued Medications Aspirin (Aspirin 81 Mg Chew Tab) 324 mg PO NOW ONE Stop: 07/20/25 12:06 Last Admin: 07/20/25 12:22 Dose: 324 mg Documented By: EB Vital Signs Vital signs: Vital Signs - 8 hr 07/20/25 11:49 07/20/25 12:48 07/20/25 12:48 Temperature 98.9 F Pulse Rate 55 L 45 L 46 L Respiratory Rate 18 24 21 Blood Pressure 116/61 116/87 Pulse Oximetry 99 99 99 Oxygen Delivery Method Room Air Room Air 07/20/25 12:49 07/20/25 13:00 07/20/25 13:15 Temperature Pulse Rate 47 L 56 L 47 L Respiratory Rate 17 34 H 17 Blood Pressure 116/87 Pulse Oximetry 98 99 98 Oxygen Delivery Method Room Air 07/20/25 13:30 07/20/25 13:47 Temperature 97.6 F Pulse Rate 48 L 53 L Respiratory Rate 23 16 Blood Pressure 104/57 L Pulse Oximetry 99 99 Oxygen Delivery Method Room Air MDM - Chest Pain Lab Data 07/20/25 12:22 07/20/25 12:22 Labs: Lab Results 07/20/25 Range/Units 12:22 WBC 7.1 (4.5-11.0) X10^3/uL RBC 4.40 (4.0-5.2) X10^6/uL Hgb 13.1 (12.0-16.0) g/dL Hct 38.9 (36-46) % MCV 88.4 (80-100) fL MCH 29.8 (26-34) PG MCHC 33.7 (30-36) % RDW 12.9 (11.6-14.8) % Plt Count 270 (150-400) X10^3/uL Neut % (Auto) 61.4 (50-75) % Lymph % (Auto) 30.7 (25-40) % [place] % (Auto) 5.3 (3-14) % Eos % (Auto) 1.8 L (2-4) % Baso % (Auto) 0.8 (0-2) % Neut # (Auto) 4300 (1008-4693) /uL Lymph # (Auto) 2200 (7432-8848) /uL [place] # (Auto) 400 (0-900) /uL Eos # (Auto) 100 (0-450) /uL Baso # (Auto) 100 (0-100) /uL PT 11.4 (9.4-12.5) SECONDS INR 1.0 (0.9-1.3) APTT 32 (25.1-36.5) SECONDS D-Dimer < 215 (<500) ng/ml Sodium 139 (137-145) mmol/L Potassium 3.9 (3.4-5.1) mmol/L Chloride 107 (98-107) mmol/L Carbon Dioxide 24 (22-32) mmol/L BUN 11 (7-17) mg/dL Creatinine 0.87 (0.52-1.04) mg/dL Estimated GFR > 60 (>60) mL/min BUN/Creatinine Ratio 12.6 (6-22) Glucose 97 (70-99) mg/dL Calcium 9.2 (8.4-10.2) mg/dL Magnesium 2.0 (1.6-2.3) mg/dL Total Bilirubin 0.6 (0.2-1.3) mg/dL AST 38 H (14-36) IU/L ALT 42 H (<35) IU/L Alkaline Phosphatase 81 (38-126) U/L Troponin I < 0.012 (0.01-0.034) ng/mL NT-Pro-B Natriuret Pep 123 (<125) pg/mL Total Protein 7.3 (6.3-8.2) g/dL Albumin 4.6 (3.5-5.0) g/dL Globulin 2.7 (1.7-4.1) g/dL Albumin/Globulin Ratio 1.7 (1.0-2.8) Lipase 182 (23-300) U/L Imaging Data Chest x-ray: Radiologist's Impression: PROCEDURE: XR CHEST 1V INDICATIONS: chest pain TECHNIQUE: One view of the chest was acquired. COMPARISON: None. FINDINGS: Clothing artifact is noted. Surgical changes and devices: None. Lungs and pleura: Lungs are clear. No pleural effusions or pneumothorax. Mediastinum: Mediastinal contours appear normal. Heart size is normal. Bones and chest wall: No suspicious bony lesions. Overlying soft tissues appear unremarkable. IMPRESSION: Unremarkable single-view chest. Dictated by: David Boykin M.D. on 07/20/2025 at 11:32 ECG Data Attestation: I personally reviewed and interpreted this ECG as follows: Interpretation: Sinus rhythm rate 58 MS interval 108 QRS [address]-elevation but significant T-wave inversion in lead 1 aVL and some an lead to no priors to compare MDM Narrative Medical decision making narrative: MDM CC: Chest pain Complicating co-morbidities: Healthy young female Data collected from: Patient Medical records reviewed: [ ] Differential considered: Costochondritis, acute coronary syndrome pericarditis Exam documented above, pertinent findings include: Alert very well-appearing 30-year-old female in no acute distress Lab Test results independently reviewed as above. Pertinent findings: CBC no leukocytosis no anemia CMP no electrolyte abnormality Troponin negative D-dimer negative Independently reviewed EKG as above T-wave inversions but no ST changes priors to compare Imaging studies independently reviewed: Chest x-ray No acute cardiopulmonary process Treatments: None Discussion: 30-year-old female without medical history presenting today with chest pain. It is reproducible it is pinpoint. She has had no trauma no injury. No significant shortness of breath. Blood work is overall reassuring. She does have some T-wave inversions noted throughout her EKGs but unclear how long this has been there. Her blood work does not show any abnormality. Due to chest pain in his reproducibility I suspect the costochondritis. No evidence of pericarditis Discharge Plan Departure Patient Disposition: Home Clinical Impression: Acute costochondritis Instructions: DI for Costochondritis Activity Restrictions/Additional Instructions: *You have been diagnosed with costochondritis *What to do: At this time your blood work x-ray are all overall reassuring. Your EKGs does show some abnormality unclear what this is from. You may require further testing with your primary care provider *Continue to take medications as directed Motrin 600 mg every 6 hours for [id number] *Follow up with your primary care provider in 2-3 days or call [phone] *Return to ER if you should have increasing chest pain shortness of breath weakness or any new, worsening or concerning symptoms Prescriptions: No Action sumatriptan succinate 50 mg tablet See Rx Instructions PO .COMPLEX Qty: 9 0RF Rx Instructions: take 1 tab at onset of headache; if no relief may repeat 1 tab after at least 2 hrs; max = 4 tabs/24 hr PO prenat.vits,kasia,[id number] Tablet 1 tab PO DAILY Referrals: Claudia Bhardwaj MD [Primary Care Provider, Family Practice] Stand Alone Forms: Patient Portal/API
--- NOTE | 2025-07-20 12:50 | PC.NURSE ---
Pt presents to ER with intermittent chest pain since FridayJuly 18. Pt reports she has had somewhat similar chest pain before but that it resolved previously and that this time it has not resolved. Pt reports the chest pain radiates to her mid back, with more on the R side. Pt reports some SOB that has also been intermittent with her chest pain. Reports pain is worse when she pushes/pulls or picks up her 1y/o son.
[2025-07-20 12:51] LABS: INR 1.0 (0.9-1.3); Prothrombin Time 11.4 SECONDS (9.4-12.5)
[2025-07-20 12:53] LABS: PTT Partial Thromboplastin Tim 32 SECONDS (25.1-36.5)
[2025-07-20 12:57] LABS: NT-proBNP (BNP-Adult 18+) 123 pg/mL (<125); Troponin I < 0.012 ng/mL (0.01-0.034)
== END 2025-07-20 13:48 | disposition home or self-care (01) ==
PROVIDERS: Emergency Provider Emergency Medicine; PCP Family Medicine
DX: M94.0 Chondrocostal junction syndrome [Tietze] (principal)
CPT/HCPCS: 36415; 71045; 80053; 83690; 83735; 83880; 84484; 85025; 85379; 85610; 85730; 93005; 99284